=== PATIENT | female | born 1995 | race Caucasian/White ===

== ENCOUNTER 2016-05-02 15:17 | Emergency (ER) | payer BC ==
[2016-05-02 15:27] VITALS: RESP 16
[2016-05-02] MEDS ORDERED: FLUORESCEIN SODIUM 1 MG STRIP OP ONE ×2 (15:36→15:47)
[2016-05-02] MEDS ORDERED: PROPARACAINE 0.5% 15 ML OPHT DROP ONE (15:36)
[2016-05-02] MEDS ORDERED: PROPARACAINE 0.5% 15 ML OPHT DROP OP ONE (15:47)
--- NOTE | 2016-05-02 15:56 | EDPHY ---
H & P Stated Complaint: left eye pain, left sided headache x 3 days, nystagmus at baseline Source: Patient Exam Limitations: No limitations - Personal History LMP (Females 10-55): 15-21 Days Ago Current Tetanus/Diphtheria Vaccine: Unsure Current Tetanus Diphtheria and Acellular Pertussis (TDAP): Unsure - Medical/Surgical History Hx Asthma: No Hx Chronic Respiratory Disease: No Hx Diabetes: No Hx Cardiac Disease: No Hx Renal Disease: No Hx Cirrhosis: No Hx Alcoholism: No Hx HIV/AIDS: No Hx Splenectomy or Spleen Trauma: No Other PMH: nystagmus at baseline (3 surgeries in past for) - Social History Smoking Status: Never smoked HPI/ROS: CHIEF COMPLAINT: Left eye swelling and redness HISTORY OF PRESENT ILLNESS: 2-3 day history of left-sided swelling and redness. The swelling is worse in the morning and improves throughout the day. It is not painful but she can feel the swelling and pressure of the swelling. She has some redness of the eye and around the eye. No fever or chills. Some associated headache. Symptoms are very mild and improved throughout the day. She has occasional change of her peripheral vision that is very brief. No photophobia. No pain. She has no change of her central vision. Her vision is very poor baseline and she is legally blind with congenital nystagmus. She has no fall or injury. She has no trauma to the eye. She does not wear contacts. She does not wear glasses. No other associated complaints or modifying factors. REVIEW OF SYSTEMS: Ten systems reviewed and are negative unless otherwise noted in the HPI EXAMINATION General Appearance: Alert, no distress Head: normocephalic, atraumatic Eyes: Pupils equal and round, no conjunctival pallor . Mild injection of the left conjunctiva. Horizontal nystagmus. Minimal erythema of the eyelid. There is no surrounding erythema. Slit-lamp examination: No fluorescein uptake. No floaters noted in the anterior chamber. Tolerated the light of the slit-lamp well. ENT, Mouth: Mucous membranes moist . Uvula midline. Neck: Normal inspection, supple, non-tender Respiratory: Lungs are clear to auscultation . No wheezing, rhonchi or crackles Cardiovascular: Regular rate and rhythm. No murmur. Skin: Warm and dry, no rash Extremities: Nontender, no pedal edema MDM: 3:50 p.m. left sided conjunctivitis with mild iraj-orbital erythema. No warmth. No eye pain. No photophobia. No uptake of fluorescein. Baseline status that she has had for years. Examination is more consistent with a conjunctivitis. Visual acuity in triage was 20/100 and each eye separately and bilaterally, Which is not significantly changed from her baseline of 20/80. There is no orbital cellulitis by history examination. She is completely pain-free and has no photophobia. Treat topically with erythromycin, empirically with PO doxycycline and refer to ophthalmology for 24 our 5th visit. Return to ER for actual eye pain or photophobia or decrease in vision. Patient is comfortable with this plan. SUPERVISION: This patient was independently evaluated without the aide of supervising physician. (Dez Teixeira) Constitutional: Initial Vital Signs Temperature (C) 36.8 C 05/02/16 15:24 Heart Rate 72 05/02/16 15:24 Respiratory Rate 16 05/02/16 15:24 Blood Pressure 104/73 05/02/16 15:24 O2 Sat (%) 98 05/02/16 15:24 O2 Delivery Mode Room Air Allergies/Adverse Reactions: Penicillins Allergy (Verified 05/02/16 15:22) Home Medications: Medication Instructions Recorded Doxycycline Hyclate 100 mg PO BID #20 tab 05/02/16 Erythromycin 0.5% 1 ania OP TID #1 opht.oint 05/02/16 Medical Decision Making Other Provider: The patient was evaluated and managed by the physician licensed occupational therapy assistant. I have reviewed this chart and I agree with the findings and plan of care as documented , as indicated by my signature. I am the secondary supervising physician. ( Becki Zamudio) - Data Points Medications Given: Discontinued Medications Fluorescein Sodium ([id number]) 1 mg OP EDNOW ONE Stop: 05/02/16 15:48 Last Admin: 05/02/16 15:50 Dose: 1 mg Proparacaine HCl (Alcaine 0.5%) 1 drops OP EDNOW ONE Stop: 05/02/16 15:48 Last Admin: 05/02/16 15:50 Dose: 1 drop Departure - Departure Disposition: Home, Routine, Self-Care Clinical Impression: Periorbital cellulitis of left eye Conjunctivitis, left eye Qualifiers: Conjunctivitis type: acute Acute conjunctivitis type: unspecified Qualified Code(s): H10.32 - Unspecified acute conjunctivitis, left eye Condition: Good Instructions: Periorbital Cellulitis in Adults (ED), Conjunctivitis (ED) Additional Instructions: follow-up with manager sterile processing within 24 hours. Return to ER for worsening symptoms, pain of the eye. Fever or worsening swelling Referrals: Chan Lima MD [Medical Doctor] - As per Instructions Prescriptions: Doxycycline Hyclate 100 mg PO BID #20 tab Erythromycin 0.5% 1 ania OP TID #1 opht.oint
[2016-05-02 16:18] VITALS: BP 132/84; PULSE 62; TEMP 98.4; O2SAT 100
== END 2016-05-02 16:18 | disposition home or self-care (01) ==
DX: L03.211 Cellulitis of face (principal); H10.32 Unspecified acute conjunctivitis, left eye